=== PATIENT | female | born 1950 | race Caucasian/White ===

== ENCOUNTER 2023-09-18 10:49 | Emergency (ER) | payer MEDICARE, SELFPAY ==
--- NOTE | ~2023-09-18 | XR_ITS ---
XR knee RT 3V DATE: 09/18/2023 12:09 INDICATION: Right knee pain, swelling TECHNIQUE: 3 views COMPARISON: None FINDINGS: There is suggestion of small suprapatellar knee joint effusion. Mild superior pole patellar enthesopathy at quadriceps tendon insertion. There is periarticular spurring at the patella and to a greater extent lateral compartment. Medial an d lateral compartment joint spaces are well preserved. There is however chondrocalcinosis of the medi al and lateral compartments. Osteopenia. No fracture or dislocation, periosteal reaction or bone destruction is detected. IMPRESSION: Small suprapatellar knee joint effusion Periarticular spurring of the patella and lateral compartment Chondrocalcinosis Osteopenia Reviewed, dictated and finalized at location B. 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
--- NOTE | ~2023-09-18 | US_ITS ---
EXAMINATION: US venous doppler LE RT DATE: 09/18/2023 11:19 INDICATION: Deep venous thrombosis with right lower limb pain and swelling. TECHNIQUE: Grayscale ultrasound images without and with compression and Doppler ultrasound images of the right lower extremity veins were obtained. COMPARISON: None. FINDINGS: The visualized portions of right common femoral vein, profunda (deep) femoral vein, femoral vein, pop liteal vein, peroneal trunk, posterior tibial veins, peroneal veins, gastrocnemius vein and greater s aphenous vein outflow are patent. IMPRESSION: 1. No deep venous thrombosis in the right lower limb. Reviewed, dictated and finalized at location A. ALTY UNDERWRITER
[2023-09-18 10:52] VITALS: BP 150/75; PULSE 92; RESP 18; TEMP 36.4; O2SAT 99
--- NOTE | 2023-09-18 12:19 | ED.GENADULT ---
HPI - General Adult General Chief complaint: Extremity Problem,Nontraumatic Stated complaint: r/o DVT Time Seen by Provider: 09/18/23 11:01 Source: patient Mode of arrival: ambulatory Limitations: no limitations History of Present Illness HPI narrative: This is a 73-year-old female who presents to the ED with chief complaint of right lower extremity is swelling for the past several days. Reports she has a platelet disorder that increase her risk of DVT. She was sent in after calling her PCP to rule out a blood clot. Reports mild swelling from the mid hernandez to the knee area. Reports the knee is actually more swollen than the leg. reports she has history of pseudogout but this does not feel similar today. Pain is minimal. Denies any warmth or erythema of the leg. Denies chest pain, shortness breath, cough, fevers, chills, nausea, vomiting. Related Data Allergies Allergy/AdvReac Type Severity Reaction Status Date / Time Sulfa (Sulfonamide Allergy Blister Verified 09/18/23 10:53 Antibiotics) Review of Systems Review of Systems: All systems as dictated in HPI Exam Narrative: GENERAL: Well-appearing, well-nourished, and in no acute distress. HEAD: Normocephalic, atraumatic. EYES: PERRLA and EOMI. ENT: Nares clear, no rhinorrhea or epistaxis. Mucous membranes moist. Oropharynx without tonsillar hypertrophy exudate or other lesions. NECK: Supple. No adenopathy or masses. CHEST: No respiratory distress. Clear to auscultation. No wheezes rales or rhonchi HEART: Regular rate and rhythm. No murmur heard. Normal peripheral pulses. ABDOMEN: Soft, nontender, nondistended, normal active bowel sounds. MSK: Normal range of motion. No edema. no tenderness throughout the bilateral lower extremities. mild swelling about the Right knee joint. No warmth, erythema. Full range of motion. SKIN: Warm, dry, no rash. NEURO: Alert and oriented x4. No focal deficits. PSYCH: Normal mood and affect. Course Vital Signs Vital signs: Vital Signs Temperature 97.5 F L 09/18/23 10:52 Pulse Rate 92 09/18/23 10:52 Respiratory Rate 18 09/18/23 10:52 Blood Pressure 150/75 H 09/18/23 10:52 Pulse Oximetry 99 09/18/23 10:52 Temperature 97.5 F L 09/18/23 10:52 Pulse Rate 92 09/18/23 10:52 Respiratory Rate 18 09/18/23 10:52 Blood Pressure 150/75 H 09/18/23 10:52 Pulse Oximetry 99 09/18/23 10:52 Medical Decision Making MDM Narrative Medical decision making narrative: This is a 73-year-old female who presents to the ED with chief complaint of right lower extremity /right knee swelling for the past couple days. Vitals are normal. Exam reveals mild right knee effusion but no overlying skin changes. She is ambulatory. Low concern for DVT based on exam. Ultrasound Doppler today rules out DVT. Right knee x-ray shows small suprapatellar knee joint effusion with periarticular spurring of the patella and lateral compartment. Chondrocalcinosis. Osteopenia. Symptoms more consistent with arthritis and flare up. Pt will be discharged in stable condition. Return precautions given and supportive measures discussed. Pt is understanding and agreeable with plan for discharge and follow-up with PCP. Vital Signs Vital Signs: Vital Signs Temperature 97.5 F L 09/18/23 10:52 Pulse Rate 92 09/18/23 10:52 Respiratory Rate 18 09/18/23 10:52 Blood Pressure 150/75 H 09/18/23 10:52 Pulse Oximetry 99 09/18/23 10:52 Temperature 97.5 F L 09/18/23 10:52 Pulse Rate 92 09/18/23 10:52 Respiratory Rate 18 09/18/23 10:52 Blood Pressure 150/75 H 09/18/23 10:52 Pulse Oximetry 99 09/18/23 10:52 Discharge Plan Discharge Clinical Impression: Swelling of joint of right knee Patient Disposition: Home, Self-Care Condition: Stable Instructions: Antibiotic Form Additional Instructions: Your exam and imaging today are reassuring. No blood clot. There is some s
== END 2023-09-18 13:11 | disposition home or self-care (01) ==
PROVIDERS: Emergency Provider Physician Assistant; PCP Internal Medicine
DX: M25.461 Effusion, right knee (principal); M11.261 Other chondrocalcinosis, right knee; M85.88 Other specified disorders of bone density and structure, other site
CPT/HCPCS: 73562; 93971; 99284